=== PATIENT | female | born 1945 | race Caucasian/White ===

== ENCOUNTER 2024-07-07 10:42 | Emergency (ER) | payer MEDICARE, MEDICAID ==
[2024-07-07] MEDS ORDERED: Cephalexin 250 MG CAP ONE (11:23)
== END 2024-07-07 12:14 | disposition home or self-care (01) ==
LOC: NAV ERS 10:42
DX: M79.661 Pain in right lower leg (principal); I11.0 Hypertensive heart disease with heart failure; I50.9 Heart failure, unspecified
CPT/HCPCS: 99284